=== PATIENT | male | born 1995 | race Two or more races ===

== ENCOUNTER 2023-04-04 12:41 | Emergency (ER) | payer OTHER ==
[~2023-04-04] VITALS: Ht 172.7 cm; Wt 113.4 kg
[2023-04-04] MEDS ORDERED: HYDR-4209 PO (13:24)
[2023-04-04] MEDS ORDERED: AMOX-430 PO (13:24)
[2023-04-04 13:41] VITALS: BP 121/81; TEMP 97.8; O2SAT 99
== END 2023-04-04 13:42 | disposition home or self-care (01) ==
LOC: ER 12:41
DX: S61.432A Puncture wound without foreign body of left hand, initial encounter (principal); S61.431A Puncture wound without foreign body of right hand, initial encounter; Z88.2 Allergy status to sulfonamides; Z88.8 Allergy status to other drugs, medicaments and biological substances; Z60.2 Problems related to living alone; W54.0XXA Bitten by dog, initial encounter; Y93.89 Activity, other specified; Y92.89 Other specified places as the place of occurrence of the external cause; Y99.8 Other external cause status